=== PATIENT | female | born 1955 | race African-American/Black ===

== ENCOUNTER 2018-11-20 16:12 | Emergency (ER) | payer SELFPAY ==
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
== END 2018-11-20 18:39 | disposition home or self-care (01) ==
LOC: ER 16:12 → EDSEX 16:12 → ER 18:39
DX: S80.12XA Contusion of left lower leg, initial encounter (principal); S60.011A Contusion of right thumb without damage to nail, initial encounter; S10.91XA Abrasion of unspecified part of neck, initial encounter; V48.6XXA Car passenger injured in noncollision transport accident in traffic accident, initial encounter
CPT/HCPCS: 99284